=== PATIENT | male | born 1990 | race Caucasian/White ===

== ENCOUNTER 2024-04-07 12:02 | Emergency (ER) | payer BC, SELFPAY ==
[2024-04-07 12:06] VITALS: BP 123/86
--- NOTE | 2024-04-07 14:10 | ED.GENMED ---
History of Present Illness
General
Chief Complaint: Musculo-Skeletal Complaint
Source: patient
Exam Limitations: none
Time Seen by Provider: 04/07/24 12:22
Nursing documentation reviewed up to this point in time: agreed with
History of Present Illness
History of Present Illness:
Patient is a 39-[id number]-[id number]-year-old male who presents to the ER complaining of foreign body in left middle finger. He reports he was working with a BB gun yesterday and accidentally hit himself in the left third finger. He initially went to [facility] last night but waited too long. He tried to get out of himself just with simply pushing out but was unable to do so. He complains of persistent foreign body. He is last tetanus is within 5 years. He denies any numbness. He reports he is able
to flex and extend his finger without difficulty.
Past History
Past History
ED Past Medical History: Psychiatric (Anxiety, depression) and Other (Substance abuse)
ED Past Surgical History: Other (Hernia repair, myringotomy tubes)
Social History
Tobacco: Smoker
Alcohol: None
Personal: Single
Living: with family
Employment: Not employed
Family History
Family History: Negative Diabetes, Hypertension or CAD
Review of Systems
Review of Systems
Allergies reviewed?: Yes
All Other Systems: ROS reviewed and negative except as documented in HPI and ROS
Constitutional: Reports no symptoms
Musculoskeletal: Reports other (left middle finger foreign body )
Skin: Reports other (see above )
Psychiatric: Reports no symptoms
Phy Exam
General Physical Exam
General Presentation: no apparent distress
General age: appears stated age
General Skin: warm and dry
General Habitus: normal
General Mental: alert
Neurological Exam
Neurological Exam: alert and oriented x3
Musculoskeletal Exam
Musculoskeletal Exam: other (LUE with strong pulses + swelling to proximal phalanx patient has an open puncture wound to proximal phalanx normal to sensation able to flex and extend without difficulty)
Skin Exam
Skin Exam: normal color and warm/dry
Psychiatric Exam
Psychiatric Exam: normal mood/affect
Course
Orders/Labs/Results
Orders:
Orders
04/07/24 12:22
Finger(s)/Thumb 2 View Lt [CR Finger(s)/thumb Min 2 Vw Lt] Urgent
Comment:
Reason For Exam: foreign body
Indicate Which Finger:: Middle Finger
04/07/24 13:51
Cephalexin Monohydrate [Keflex] 500 mg PO NOW STA
Vital Signs
Initial and Last Documented VS:
Initial Vital Signs
Temp Pulse Resp BP Pulse Ox
98.4 F 89 18 123/86 98
04/07/24 12:06 04/07/24 12:06 04/07/24 12:06 04/07/24 12:06 04/07/24 12:06
Last Documented Vital Signs
Temp Pulse Resp BP Pulse Ox
98.4 F 89 18 123/86 98
04/07/24 12:06 04/07/24 12:06 04/07/24 12:06 04/07/24 12:06 04/07/24 12:06
Yard Coordinator consulted with Physician
Yard Coordinator consulted with physician?: Yes
Name of Physician Consulted: Noh
Procedures
Foreign Body Removal-Skin
Wound explored and foreign body removed?: Yes
Anesthesia: other (digital block with 1 % lidocaine without epinephrine )
Foreign body removed using: incision (Small incision was created with 11 blade scalpel and with tweezers a small round BB was removed successfully with assistance of ED physician)
MDM/Problems Addressed
Differential Diagnosis Includes:
Not limited to foreign body
MDM/Problems Addressed:
Patient with obvious foreign body on x-ray in the soft tissue of left no fracture. On exam patient has an open puncture wound however the foreign body is not visible at this site however it was palpated superior to the site and the proximal phalanx
of left middle finger. Patient has normal sensation mild swelling to the area patient has normal sensation able to flex and extend without difficulty. Digital block was performed and with assistance of ED physician Dr. Velasquez, small incision was
created with 11 blade scalpel and foreign body was successfully removed in 1 piece. Wound was irrigated with copious brianna normal saline will do antibiotics, ice elevation splint and outpatient follow-up by hand surgeon for follow-up.
Patient is [id number]
*Radiology
Radiology exam reviewed: radiology read reviewed
*Critical Care Note
Total Time (30-74mins, 75-104mins- exclusive of procedures): Not Applicable
ED Attending Note
-
Portions of this chart may have been created with voice recognition software.� Occasional wrong word or��sound alike� substitutions may have occurred due to the inherent limitations of voice recognition software.
Discharge Plan
Departure
Patient Disposition: Home (Routine Discharge)
Date of Disposition: 04/07/24
Time of Disposition: 14:08
Patient with high blood pressure during this ER visit?: Yes
Condition: Fair
Covid-19: Not Applicable
Discharge Problem:
Foreign body finger
Prescriptions:
New
cephalexin 500 mg capsule
500 mg PO Q6H Qty: 28 0RF
No Action
propranolol 10 MG tablet
10 mg PO BID
fluoxetine 20 MG capsule
40 mg PO DAILY
alprazolam [Xanax XR] 2 MG tablet extended release 24 hr
2 mg PO BID
quetiapine [Seroquel XR] 200 MG tablet extended release 24 hr
200 mg PO HS
prednisone 10 mg Tablet
See Rx Instructions .ROUTE .COMPLEX Qty: 30 0RF
Rx Instructions:
Take By Mouth:
40 mg daily x3 days, 30 mg daily x3 days,
20 mg daily x3 days, 10 mg daily x3 days.
Referrals:
Steve Jalloh MD [Active] -
NONE,* [Family Provider] -
Niels Oden MD [Active] -
Activity Restrictions/Additional Instructions:
As discussed continue to keep finger elevated ice the affected area for the next 24 hours 20 minutes at a time several times a day. Antibiotics for the next 7 days for prevention of infection. It Is important that you follow-up closely with hand
surgery for wound check and follow-up. Return if any worsening of symptoms of increased pain swelling drainage redness fever chills red streaking.
Interventions
Interventions:
*Risk Screen - Suicide Last Done: 04/07/24 12:08
*General Assessment Last Done: 04/07/24 12:08
*Neglect/Abuse Screening Last Done: 04/07/24 12:08
ED- Fall Risk Assessment Last Done: 04/07/24 13:04
*ED COVID-19 Vaccine History Last Done: 04/07/24 12:23
ED-Musculoskeletal Assessment Last Done: 04/07/24 12:23
Discharge Date and Time
Print Language: OMANI
[2024-04-07] MEDS: KEFLEX 500 MG PO (14:23)
== END 2024-04-07 14:28 | disposition home or self-care (01) ==
LOC: EMR 12:02
PROVIDERS: EMERGENCY PHYSICIAN Emergency Medicine
DX: S61.243A Puncture wound with foreign body of left middle finger without damage to nail, initial encounter (principal); W34.010A Accidental discharge of airgun, initial encounter; F17.200 Nicotine dependence, unspecified, uncomplicated
CPT/HCPCS: 64450; 99284; 10120; 73140

== ENCOUNTER 2024-05-14 17:05 | Emergency (ER) | payer BC, SELFPAY ==
[2024-05-14 17:09] VITALS: BP 152/80
[2024-05-14 18:26] LABS: % Basophils 0.2 % (0-2); % Eosinophils 1.3 % (0-6); % Immature Granulocytes 0.5 % (0-0.5); % Lymphocytes 26.3 % (20.5-51.1); % Monocytes 5.2 % (1.7-9.3); % Neutrophils 66.5 % (42.2-75.2); Absolute Eosinophils 0.1 10^3/uL (0-0.7); Absolute Lymphocytes 2.2 10^3/uL (1.2-3.4); Absolute Monocytes 0.4 10^3/uL (0.1-0.6); Absolute Neutrophils 5.6 10^3/uL (1.4-6.5); Hematocrit 38.3 % (39.0-52.0); Hemoglobin 13.9 g/dL (13.0-18.0); Mean Corp Hgb Conc. 36.3 g/dL (33.0-37.0); Mean Corpuscular Hgb 30.8 pg (27.0-31.0); Mean Corpuscular Volume 84.9 fL (80.0-94.0); Nucleated Red Blood Cells % 0 % (-); Platelet Count 336 10^3/uL (130-400); Red Blood Cell Count 4.51 10^6/uL (4.70-6.10); Red Cell Dist. Width 11.4 % (11.5-14.5); White Blood Cell Count 8.3 10^3/uL (4.8-10.8)
[2024-05-14 18:44] LABS: ALT (SGPT) 16 U/L (0-50); AST (SGOT) 43 U/L (17-59); Albumin 4.5 g/dl (3.5-5.0); Alkaline Phosphatase 68 U/L (38-126); Blood Urea Nitrogen 20 mg/dl (9-20); Carbon Dioxide 31 mmol/L (22-30); Chloride 97 mmol/L (98-107); Glucose 77 mg/dl (70-99); Potassium 4.4 mmol/L (3.5-5.1); Sodium 139 mmol/L (135-145); Total Bilirubin 0.7 mg/dl (0.2-1.3); eGFR > 60.00
--- NOTE | 2024-05-14 23:09 | ED.MUSCINJ ---
HPI-Injury
General
Chief Complaint: Musculo-Skeletal Complaint
Source: patient
Exam Limitations: none
Time Seen by Provider: 05/14/24 18:02
Nursing documentation reviewed up to this point in time: agreed with
History of Present Illness-Injury
Is this injury a work related problem?: No
Is pt an associate of [facility]?: No
Initial Injury comments:
Patient to ED [facility] complaint of feeling swollen on right side of chest. States symptoms have been ongoing for a few months. He as not had this evaluated before. States it is not painful to touch and he does not see swelling but feels like the right
lat chest wall is swollen from inside. Brought self to ED for eval. Denies fever/chills. No SOB or cough. No history of trauma
Past History
Past History
ED Past Medical History: Psychiatric (Anxiety, depression) and Other (Substance abuse)
ED Past Surgical History: Other (Hernia repair, myringotomy tubes)
Social History
Tobacco: Smoker
Alcohol: None
Personal: Single
Living: with family
Employment: Not employed
Family History
Family History: Negative Diabetes, Hypertension or CAD
Review of Systems
Review of Systems
Allergies reviewed?: Yes
All Other Systems: ROS reviewed and negative except as documented in HPI and ROS
Constitutional: Reports no symptoms
EENT: Reports no symptoms
Respiratory: Reports other (Feels like right lateral chest is swollen from the inside.)
Cardiac: Reports no symptoms
ABD/GI: Reports no symptoms
: Reports no symptoms
Musculoskeletal: Reports no symptoms
Skin: Reports no symptoms
Neurological: Reports no symptoms
Psychiatric: Reports no symptoms
Musculoskeletal Injury Exam
Musculoskeletal Injury Exam
Right Lateral Chest:
Pain with Movement?: None
Tender to palpation?: None
Soft tissue swelling?: None
External deformity and angulation?: None
Joint effusion?: None
Contusion?: None
Hematoma-local bleeding into tissue?: None
Strain- Sprain- Tear (Connective tissue injury)?: None
Crepitus with movement?: No
Joint instability?: No
Malalignment/deformity?: No
Range of motion: Full
Distal skin color and temperature: normal-warm & good color
Capillary Refill: normal
Normal distal neurovascular exam?: Yes
Phy Exam
General Physical Exam
General Presentation: well appearing and no apparent distress
General age: appears stated age
General Skin: warm and dry
General Habitus: normal
General Mental: alert
Cardiovascular Exam
Cardiovascular Exam: regular rate/rhythm and no edema
Pulmonary Exam
Pulmonary Exam: lungs clear, no respiratory distress and chest non tender
Musculoskeletal Exam
Musculoskeletal Exam: full ROM and neuro vasc intact
Skin Exam
Skin Exam: normal color, warm/dry and no rash
Psychiatric Exam
Psychiatric Exam: normal mood/affect
Injury Course
Orders/Labs/Results
Orders:
Orders
05/14/24 18:09
CR Chest - 2 Views Urgent
Comment:
Reason For Exam: right chest pain
05/14/24 18:16
Complete Blood Count/With Diff Urgent
Comprehensive Metabolic Panel Urgent
Abnormal Lab Results
05/14/24
18:16
RBC 4.51 L 10^6/uL
(4.70-6.10)
Hct 38.3 L %
(39.0-52.0)
RDW 11.4 L %
(11.5-14.5)
Chloride 97 L mmol/L
(98-107)
Carbon Dioxide 31 H mmol/L
(22-30)
05/14/24 18:16
05/14/24 18:16
*Radiology
Radiology exam reviewed: radiology read reviewed
*Pulse Oximetry
Patient hypoxic: no
*Critical Care Note
Total Time (30-74mins, 75-104mins- exclusive of procedures): Not Applicable
Update Note
Update Note:
No concerning findings on exam. Labs, CXR normal. WIll discharge home, encouraged to follow up with PCP. He is agreable to plan.
ED Attending Note
-
Portions of this chart may have been created with voice recognition software.� Occasional wrong word or��sound alike� substitutions may have occurred due to the inherent limitations of voice recognition software.
Discharge Plan
Departure
Patient Disposition: Home (Routine Discharge)
Date of Disposition: 05/14/24
Time of Disposition: 19:15
Patient with high blood pressure during this ER visit?: No
Condition: Good
Covid-19: Not Applicable
Discharge Problem:
Chest wall discomfort
Instructions: Muscle and Bone Pain (DC)
Prescriptions:
No Action
propranolol 10 MG tablet
10 mg PO BID
fluoxetine 20 MG capsule
40 mg PO DAILY
alprazolam [Xanax XR] 2 MG tablet extended release 24 hr
2 mg PO BID
quetiapine [Seroquel XR] 200 MG tablet extended release 24 hr
200 mg PO HS
prednisone 10 mg Tablet
See Rx Instructions .ROUTE .COMPLEX Qty: 30 0RF
Rx Instructions:
Take By Mouth:
40 mg daily x3 days, 30 mg daily x3 days,
20 mg daily x3 days, 10 mg daily x3 days.
cephalexin 500 mg capsule
500 mg PO Q6H Qty: 28 0RF
Referrals:
[facility] [Outside] (Physician referral)
NONE,* [Family Provider] -
Interventions
Interventions:
*Risk Screen - Suicide Last Done: 05/14/24 17:51
*Neglect/Abuse Screening Last Done: 05/14/24 17:51
*Nursing Disposition Last Done: 05/14/24 19:26
ED-Musculoskeletal Assessment Last Done: 05/14/24 17:51
Discharge Date and Time
Discharge Date/Time: 05/14/24 19:26
Print Language: GREENLANDIC
== END 2024-05-14 19:26 | disposition home or self-care (01) ==
LOC: EMR 17:05
PROVIDERS: Nurse Practitioner; EMERGENCY PHYSICIAN Emergency Medicine
DX: R07.89 Other chest pain (principal); F17.200 Nicotine dependence, unspecified, uncomplicated
CPT/HCPCS: 99284; 71046; 80053; 85025

== ENCOUNTER 2024-10-31 21:16 | Emergency (ER) | payer BC, SELFPAY ==
[2024-10-31 21:17] VITALS: BMI 31.6
[2024-10-31 21:25] VITALS: BP 125/79
[2024-10-31 22:15] LABS: % Basophils 0.5 % (0-2); % Eosinophils 0.8 % (0-6); % Immature Granulocytes 0.4 % (0-0.5); % Lymphocytes 19.2 % (20.5-51.1); % Monocytes 6.4 % (1.7-9.3); % Neutrophils 72.7 % (42.2-75.2); Absolute Basophils 0.1 10^3/uL (0-0.2); Absolute Eosinophils 0.1 10^3/uL (0-0.7); Absolute Lymphocytes 2.1 10^3/uL (1.2-3.4); Absolute Monocytes 0.7 10^3/uL (0.1-0.6); Absolute Neutrophils 7.8 10^3/uL (1.4-6.5); Hematocrit 40.9 % (39.0-52.0); Hemoglobin 14.2 g/dL (13.0-18.0); Mean Corp Hgb Conc. 34.7 g/dL (33.0-37.0); Mean Corpuscular Hgb 31.1 pg (27.0-31.0); Mean Corpuscular Volume 89.7 fL (80.0-94.0); Nucleated Red Blood Cells % 0 % (-); Platelet Count 313 10^3/uL (130-400); Red Blood Cell Count 4.56 10^6/uL (4.70-6.10); Red Cell Dist. Width 11.8 % (11.5-14.5); White Blood Cell Count 10.8 10^3/uL (4.8-10.8)
[2024-10-31 22:31] LABS: ALT (SGPT) 15 U/L (0-50); AST (SGOT) 28 U/L (17-59); Albumin 3.9 g/dl (3.5-5.0); Alkaline Phosphatase 57 U/L (38-126); Blood Urea Nitrogen 10 mg/dl (9-20); Calcium 9.5 mg/dl (8.4-10.2); Carbon Dioxide 28 mmol/L (22-30); Chloride 101 mmol/L (98-107); Glucose 139 mg/dl (70-99); Lipase 37 U/L (23-300); Potassium 3.9 mmol/L (3.5-5.1); Sodium 136 mmol/L (135-145); Total Bilirubin 0.7 mg/dl (0.2-1.3); Total Protein 6.2 g/dl (6.3-8.2); eGFR > 60.00
[2024-10-31 22:42] LABS: Troponin I < 0.012 ng/ml
[2024-10-31 23:03] VITALS: BP 114/60
[2024-11-01] VITALS: BP 120/61
[2024-11-01 01:00] VITALS: BP 127/72
[2024-11-01 01:14] LABS: D-Dimer < 0.27 ug/mlFEU (0.00-0.50)
--- NOTE | 2024-11-01 01:30 | ED.GENMED ---
History of Present Illness
General
Chief Complaint: Abdominal Symptoms
Time Seen by Provider: 10/31/24 23:00
History of Present Illness
History of Present Illness:
34-year-old male without significant past medical history presenting to the emergency department for chest pain. Patient reports that for the past week he has been having right chest wall pain. Around 6 PM, the pain started to travel to the center
of his chest. Denies inciting injury or trauma. Denies any exertion. Denies any personal or family history of cardiac disease. Denies any history of blood clots, recent surgery, recent travel. Does note some pain with deep inspiration. Denies
cough or fever. Denies abdominal pain or GI symptoms. Denies additional acute medical complaints.
Past History
Past History
ED Past Medical History: Psychiatric (Anxiety, depression) and Other (Substance abuse)
ED Past Surgical History: Other (Hernia repair, myringotomy tubes)
Social History
Tobacco: Smoker
Alcohol: None
Personal: Single
Living: with family
Employment: Not employed
Family History
Family History: Negative Diabetes, Hypertension or CAD
Phy Exam
Physical Exam
Physical Exam:
General: Well-appearing, no clinical signs of dehydration, nontoxic and in no acute distress
HEENT: protecting airway
Neck: appears supple
CV: Normal heart rate, regular rhythm, mild tenderness to the sternal chest wall without crepitus. No overlying skin changes
Resp: No accessory muscle use, no increased work of breathing, lungs clear to auscultation bilaterally
Abd: No distention
Extremities: No deformities, no swelling
Neuro: alert, no focal neurologic deficit
: deferred
Rectal: deferred
Psych: Normal affect
Skin: Intact
Course
Orders/Labs/Results
Orders:
Orders
10/31/24 21:28
Electrocardiogram (*1) Urgent
Reason for Study: Vertigo / Dizzy
EKG- Treatment ONCE
10/31/24 22:06
Complete Blood Count/With Diff Urgent
Comprehensive Metabolic Panel Urgent
Lipase Urgent
Troponin I Urgent
10/31/24 23:49
D-Dimer Urgent
Abnormal Lab Results
10/31/24
22:06
RBC 4.56 L 10^6/uL
(4.70-6.10)
MCH 31.1 H pg
(27.0-31.0)
Absolute Neuts (auto) 7.8 H 10^3/uL
(1.4-6.5)
Absolute Monos (auto) 0.7 H 10^3/uL
(0.1-0.6)
Lymphocytes % 19.2 L %
(20.5-51.1)
Glucose 139 H mg/dl
(70-99)
Total Protein 6.2 L g/dl
(6.3-8.2)
10/31/24 22:06
10/31/24 22:06
Vital Signs
Initial and Last Documented VS:
Initial Vital Signs
Temp Pulse Resp BP Pulse Ox
98.7 F 91 18 125/79 99
10/31/24 21:25 10/31/24 21:25 10/31/24 21:25 10/31/24 21:25 10/31/24 21:25
Last Documented Vital Signs
Temp Pulse Resp BP Pulse Ox
98.7 F 82 23 127/72 98
10/31/24 21:25 11/01/24 01:15 11/01/24 01:15 11/01/24 01:00 11/01/24 01:15
MDM/Problems Addressed
MDM/Problems Addressed:
34-year-old male with no significant past medical history presenting for chest wall pain. Vital signs normal.
On exam patient is resting comfortably, no acute distress. Unremarkable cardiac and pulmonary exam. EKG obtained on patient's arrival, nonischemic without acute abnormality or arrhythmia. Patient low risk for cardiac disease with low suspicion
for ACS. Patient does have some reproducible pain on exam, suspected musculoskeletal component. Patient had screening laboratory analysis prior to my assessment, undetectable troponin, again low risk for ACS. Patient does note some pain with deep
inspiration, notes that he also had some right leg cramping. Will add on D-dimer to ensure no PE.
01:30 - D-dimer is undetectable. Patient remains to dynamically stable. At this time feel stable for discharge with continued suspicion for musculoskeletal source of pain. Advised outpatient primary care follow-up. Return precautions discussed
and patient verbalized understanding
*EKG
Interpreted by ED Provider?: Yes
EKG Intrepretation Date: 11/01/24
EKG Intrepretation Time: 01:35
Interpretation: normal
Comparison EKG: no changes (09/13/23)
Heart Rate: 87
Rate: normal
Rhythm: sinus
[place]: normal axis
Interval: normal interval
QRS Pattern: normal QRS
Ischemia: no ischemia
*Critical Care Note
Total Time (30-74mins, 75-104mins- exclusive of procedures): Not Applicable
ED Attending Note
-
Portions of this chart may have been created with voice recognition software.� Occasional wrong word or��sound alike� substitutions may have occurred due to the inherent limitations of voice recognition software.
Discharge Plan
Departure
Patient Disposition: Home (Routine Discharge)
Date of Disposition: 11/01/24
Time of Disposition: 01:29
Patient with high blood pressure during this ER visit?: No
Condition: Good
Discharge Problem:
Chest wall pain
Instructions: Chest pain - Discharge instructions
Prescriptions:
No Action
propranolol 10 MG tablet
10 mg PO BID
fluoxetine 20 MG capsule
40 mg PO DAILY
alprazolam [Xanax XR] 2 MG tablet extended release 24 hr
2 mg PO BID
quetiapine [Seroquel XR] 200 MG tablet extended release 24 hr
200 mg PO HS
prednisone 10 mg Tablet
See Rx Instructions .ROUTE .COMPLEX Qty: 30 0RF
Rx Instructions:
Take By Mouth:
40 mg daily x3 days, 30 mg daily x3 days,
20 mg daily x3 days, 10 mg daily x3 days.
cephalexin 500 mg capsule
500 mg PO Q6H Qty: 28 0RF
Referrals:
Jakub Calvert MD [Family Provider] -
Activity Restrictions/Additional Instructions:
You were seen in the emergency department for chest pain
You were found to have normal blood work, EKG, without present concern for a cardiac etiology of your symptoms.
Please follow-up closely with your primary care physician.
Return to the emergency department for any worsening of your symptoms, or any development of chest pain, difficulty breathing, abdominal pain with persistent vomiting and inability to tolerate food or liquid by mouth (concern for dehydration),
weakness, headache or confusion, fever greater than 100.4, or any additional symptoms that are concerning to you.
Thank you for choosing [facility].
Interventions
Interventions:
*Risk Screen - Suicide Last Done: 10/31/24 21:25
*General Assessment Last Done: 10/31/24 21:25
*Neglect/Abuse Screening Last Done: 10/31/24 21:25
ED- Fall Risk Assessment Last Done: 10/31/24 23:05
*ED COVID-19 Vaccine History Last Done: 10/31/24 21:25
MS-[id number]-Hlxsoabrok Assessment Last Done: 10/31/24 23:05
Discharge Date and Time
Print Language: MACANESE
== END 2024-11-01 01:36 | disposition home or self-care (01) ==
LOC: EMR 21:16
PROVIDERS: Student in an Organized Health Care Education/Training Program; EMERGENCY PHYSICIAN Student in an Organized Health Care Education/Training Program; FAMILY PHYSICIAN Family Medicine
DX: R07.89 Other chest pain (principal); F17.200 Nicotine dependence, unspecified, uncomplicated
CPT/HCPCS: 99284; 80053; 83690; 84484; 85025; 85379; 93005